=== PATIENT | female | born 1965 | race American Indian/Alaskan Native ===

== ENCOUNTER 2021-03-16 08:00 | Emergency (ER) | payer OTHER ==
--- NOTE | 2021-03-16 08:53 | Emergency Department Report ---
ED General Adult HPI - General Chief complaint: Abdominal Pain Stated complaint: KIDNEY PROBLEM PUI?: No Time Seen by Provider: 03/16/21 08:43 Source: patient, RN notes reviewed Mode of arrival: Ambulatory Limitations: No Limitations - History of Present Illness Initial comments: The patient was evaluated in the emergency department for symptoms described in the history of present illness. He/she was evaluated in the context of the global COVID-19 pandemic, which necessitated consideration that the patient might be at risk for infection with the virus that causes COVID-19. Institutional protocols and algorithms that pertain to the evaluation of patients at risk for COVID-19 are in a state of rapid change based on infor mation released by regulatory bodies including the CDC and federal and state organizations. These policies and algorithms were followed during the patient's care in the emergency department. Please note that these policies, procedures and recommendations changed on a rapid basis. Cardiology: Dr. 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 Primary CARE doctor: Patient reports that her primary care doctor recently retired or stopped working, and she currently does not have a primary care doctor. The patient is a 56-year-old female. Her past medical history includes hypertension, renal insufficiency, uncertain what baseline GFR and creatinine are, obesity, currently being worked up by her outpatient vat skimmer for possible pheochromocytoma. The patient presents to the ER today with a complaint of abdominal cramping for about 1 week. She describes right upper quadrant cramping that radiates to the back and right flank. She denies headache, neck pain, chest pain, vomiting, diaphoresis, dysuria. She denies travel, surgery, DVT and pulmonary embolism risk factors. She reports that she has chronic lower extremity swelling. She reports that she goes to [facility] for her prescriptions, and reports having had an outpatient renal ultrasound recently, about 2 weeks ago, which she thinks was unremarkable. Her vat skimmer has apparently recommended an outpatient MRI to better assess adrenal glands. The patient states that her pain is not present at this time, and she does not need or want any pain medicine. -: Gradual, days(s), week(s) Location: abdomen Severity scale (0 -10): 3 Quality: aching Consistency: intermittent, now resolved Improves with: none Worsens with: none - Related Data Allergies Allergy/AdvReac Type Severity Reaction Status Date / Time No Known Allergies Allergy Unverified 03/16/21 08:07 ED Review of Systems ROS: Stated complaint: KIDNEY PROBLEM Other details as noted in HPI Constitutional: other (Denies loss of taste and smell). denies: fever, malaise, weakness Eyes: denies: eye discharge Respiratory: denies: shortness of breath, wheezing Cardiovascular: edema (Minimal lower extremity edema). denies: chest pain Gastrointestinal: other (Abdominal cramping). denies: nausea, vomiting, hematochezia Genitourinary: denies: urgency, dysuria Musculoskeletal: back pain. denies: myalgia Neurological: denies: weakness Psychiatric: anxiety ED Past Medical Hx - Past Medical History Previous Medical History?: Yes Hx Hypertension: Yes Additional medical history: thyroid - Surgical History Past Surgical History?: Yes Additional Surgical History: part thyroidectomy, sinus surgery, parathyroid g land ED Physical Exam - General Limitations: No Limitations General appearance: alert, anxious, obese - Head Head exam: Present: atraumatic, normocephalic - Eye Eye exam: Present: normal appearance, EOMI. Absent: nystagmus - ENT ENT exam: Present: normal exam, normal orophraynx, mucous membranes moist, normal external ear exam - Neck Neck exam: Present: normal inspection, full ROM. Absent: tenderness, meningismus - Respiratory Respiratory exam: Present: rales (Very faint rales noted in the bilateral inferior lung sanchez). Absent: respiratory distress, wheezes, rhonchi, stridor - Cardiovascular Cardiovascular Exam: Present: regular rate, normal rhythm, normal heart sounds. Absent: bradycardia, tachycardia, irregular rhythm, systolic murmur, diastolic murmur, rubs, gallop - GI/Abdominal GI/Abdominal exam: Present: soft. Absent: distended, tenderness, guarding, rebound, rigid, pulsatile mass - Extremities Exam Extremities exam: Present: normal inspection, full ROM, pedal edema (1+ edema in the bilateral lower extremities), other (2+ pulses noted in the bilateral upper and lower extremities. There is no palpable cord. negative Homans sign. Muscular compartments are soft. The pelvis is stable.). Absent: calf tenderness - Back Exam Back exam: Present: normal inspection, full ROM. Absent: tenderness, CVA tenderness (R), CVA tenderness (L), paraspinal tenderness, vertebral tenderness - Neurological Exam Neurological exam: Present: alert, oriented X3, normal gait, other (No facial droop. Tongue midline. Extraocular movements intact bilaterally. Facial sensation intact to light touch in V1, V2, V3 distribution bilaterally. 5 and a 5 strength in 4 extremities. Sensation intact to light touch in 4 extremities.). Absent: motor sensory deficit - Psychiatric Psychiatric exam: Present: anxious - Skin Skin exam: Present: warm, dry, intact, normal color. Absent: rash ED Course Vital Signs 03/16/21 08:11 Temperature 98.1 F Pulse Rate 80 Respiratory 20 Rate Blood Pressure 163/93 [Right] O2 Sat by Pulse 98 Oximetry - Reevaluation(s) Reevaluation #1: 03/16/21 09:28 Differential diagnosis, including but not limited to: Encounter for medical screening examination, renal insufficiency, CHF, cardiorenal syndrome, electrolyte derangement, pneumonia, biliary colic, cholecystitis, hepatitis Assessment and plan: 56-year-old female, who is afebrile with reassuring vital signs, with the exception of elevated blood pressure, who is not currently tachycardic, tachypneic or hypoxic, who denies travel, surgery, immobilization, DVT and pulmonary embolism risk factors, low risk by Wells criteria for pul monary embolism, who appears to be of primarily presenting for reassurance, as she is very anxious over her outpatient work-up for renal insufficiency, and possible pheochromocytoma. She has no abdominal tenderness, rebound or guarding, and declines pain medication at this time. Her examination at this time is not suggestive or consistent with an acute abdominal surgical condition. Given the presence of very fine rales at the bilateral lung sanchez, lower extremity edema, we will check x-ray of the chest, right upper quadrant ultrasound, EKG, urinalysis, and appropriate laboratory studies. She reports having had a renal ultrasound within the past 2 weeks which was unremarkable to the best of her recollection. Reassess after initial data points. Reevaluation #2: 03/16/21 09:55 Contacted [facility]. Home medications include HCTZ, 12.5 daily, Synthroid, 225 mcg daily, Toprol, 50 mg twice daily, nifedipine, 60 mg daily, clonidine, 0.1 as needed hypertension, and calcium. The office confirms that patient had an outpatient renal ultrasound, which was unremarkable. She apparently had some sort of 24-hour urine test, which may have suggested pheochromocytoma. An outpatient abdominal MRI has been ordered. Laboratory studies unremarkable as of this time. X-ray, right upper quadrant ultrasound, urinalysis, EKG pending. 03/16/21 11:15 Objective diagnostic work-up unremarkable. Patient resting comfortably in stretcher, and in no acute distress. I had extensive discussion with the patient regarding her laboratory studies and imaging studies. She is going to follow-up with her outpatient vat skimmer. She is also asking for an outpatient referral to an ENT. She would like a second opinion. She reports that an outpatient ENT did a turbinectomy on her a few weeks or months ago, and since then, she has had a difficult and irritating postnasal drip. To the best of her knowledge, she does not have a history of obstructive sleep apnea, but she would like an outpatient second opinion from an ENT perspective. No emergent medical condition appears to be present at this time. Please reference the [employer] clinical policy on asymptomatic hypertension. Abdomen soft on repeat examination. ED Medical Decision Making - Lab Data Result diagrams: 03/16/21 08:58 03/16/21 08:58 Vital Signs 03/16/21 08:11 Temperature 98.1 F Pulse Rate 80 Respiratory 20 Rate Blood Pressure 163/93 [Right] O2 Sat by Pulse 98 Oximetry Lab Results 03/16/21 Range/Units 08:58 WBC 4.5 (4.5-11.0) K/mm3 RBC 4.50 (3.65-5.03) M/mm3 Hgb 12.2 (10.1-14.3) gm/dl Hct 36.3 (30.3-42.9) % MCV 81 (79-97) fl MCH 27 L (28-32) pg MCHC 34 (30-34) % RDW 13.8 (13.2-15.2) % Plt Count 198 (140-440) K/mm3 Lab Results 03/16/21 03/16/21 03/16/21 Range/Units 08:58 08:58 08:59 WBC 4.5 (4.5-11.0) K/mm3 RBC 4.50 (3.65-5.03) M/mm3 Hgb 12.2 (10.1-14.3) gm/dl Hct 36.3 (30.3-42.9) % MCV 81 (79-97) fl MCH 27 L (28-32) pg MCHC 34 (30-34) % RDW 13.8 (13.2-15.2) % Plt Count 198 (140-440) K/mm3 PT (12.2-14.9) Sec. INR (0.87-1.13) Sodium 140 (137-145) mmol/L Potassium 3.6 (3.6-5.0) mmol/L Chloride 103.1 (98-107) mmol/L Carbon Dioxide 27 (22-30) mmol/L Anion Gap 14 mmol/L BUN 9 (7-17) mg/dL Creatinine 0.9 (0.6-1.2) mg/dL Estimated GFR > 60 ml/min BUN/Creatinine Ratio 10 % Glucose 106 H (65-100) mg/dL Calcium 8.3 L (8.4-10.2) mg/dL Magnesium 2.00 (1.7-2.3) mg/dL Total Bilirubin 0.60 (0.1-1.2) mg/dL AST 13 (5-40) units/L ALT 14 (7-56) units/L Alkaline Phosphatase 59 (35-129) units/L Total Creatine Kinase 185 H (30-135) units/L NT-Pro-B Natriuret Pep 280.5 (0-900) pg/mL Total Protein 6.9 (6.3-8.2) g/dL Albumin 4.3 (3.9-5) g/dL Albumin/Globulin Ratio 1.7 % Lipase 41 (13-60) units/L 03/16/21 Range/Units 08:59 WBC (4.5-11.0) K/mm3 RBC (3.65-5.03) M/mm3 Hgb (10.1-14.3) gm/dl Hct (30.3-42.9) % MCV (79-97) fl MCH (28-32) pg MCHC (30-34) % RDW (13.2-15.2) % Plt Count (140-440) K/mm3 PT 14.0 (12.2-14.9) Sec. INR 1.03 (0.87-1.13) Sodium (137-145) mmol/L Potassium (3.6-5.0) mmol/L Chloride (98-107) mmol/L Carbon Dioxide (22-30) mmol/L Anion Gap mmol/L BUN (7-17) mg/dL Creatinine (0.6-1.2) mg/dL Estimated GFR ml/min BUN/Creatinine Ratio % Glucose (65-100) mg/dL Calcium (8.4-10.2) mg/dL Magnesium (1.7-2.3) mg/dL Total Bilirubin (0.1-1.2) mg/dL AST (5-40) units/L ALT (7-56) units/L Alkaline Phosphatase (35-129) units/L Total Creatine Kinase (30-135) units/L NT-Pro-B Natriuret Pep (0-900) pg/mL Total Protein (6.3-8.2) g/dL Albumin (3.9-5) g/dL Albumin/Globulin Ratio % Lipase (13-60) units/L - EKG Data -: EKG Interpreted by Ms EKG shows normal: sinus rhythm Rate: bradycardia - EKG Data When compared to previous EKG there are: previous EKG unavailable 03/16/21 11:14 EKG interpreted at 11: 04 Sinus rhythm, bradycardia, 55 bpm. Left axis deviation, left anterior fascicular block, and left ventricular hypertrophy. QTC 431 ms. There is low voltage in the lateral leads. This is an abnormal EKG. This is not a STEMI. - Radiology Data Radiology results: pending, report reviewed, image reviewed [facility] [address] [place] [address] XRay Report Signed Patient: ANDRIY KELLER MR#: [id number] 5 : 1965 Acct:[id number] Age/Sex: 56 / F ADM Date: 03/16/21 Loc: ED Attending Dr: Ordering Physician: LUIZ BARNES MD Date of Service: 03/16/21 Procedure(s): XR chest routine 2V Accession Number(s): [id number] cc: LUIZ BARNES MD Fluoro Time In Minutes: XR chest routine 2V INDICATION / CLINICAL INFORMATION: rales COMPARISON: None available. FINDINGS: SUPPORT DEVICES: None. HEART / MEDIASTINUM: No significant abnormality. LUNGS / PLEURA: Lungs are clear. Costophrenic sulci are sharp. No pneumothorax. ADDITIONAL FINDINGS: No significant additional findings. IMPRESSION: 1. No acute findings. Signer Name: Tate Fuentes MD Signed: 03/16/2021 10:23 AM Workstation Name: [id number] Transcribed By: ANNABELLE Dictated By: Tate Fuentes MD Electronically Authenticated By: Tate Fuentes MD Signed Date/Time: 03/16/21 1023 DD/ 1023 TD/TT: [facility] [address] [place] [address] Ultrasound Report Signed Patient: ANDRIY KELLER MR#: [id number] 5 : 1965 Acct:[id number] Age/Sex: 56 / F ADM Date: 03/16/21 Loc: ED Attending Dr: Ordering Physician: LUIZ BARNES MD Date of Service: 03/16/21 Procedure(s): US abdomen limited Accession Number(s): [id number] cc: LUIZ BARNES MD US abdomen limited INDICATION: ruq pain COMPARISON: None. FINDINGS: Pancreas: No significant abnormality identified in the visualized portions of the pancreas. Abdominal aorta: No significant abnormality. IVC: Normal. Liver: Increased echogenicity. Gallbladder: Sludge in gallbladder. No gallstones, gallbladder wall thickening, or pericholecystic fluid. Bile ducts: The common bile duct measures 3 mm. Right Kidney: No significant abnormality. Additional findings: No significant additional findings. IMPRESSION: Findings most consistent with diffuse hepatic steatosis. Otherwise, no significant sonographic abnormality. Signer Name: Tate Fuentes MD Signed: 03/16/2021 10:20 AM Workstation Name: [id number] Transcribed By: ANNABELLE Dictated By: Tate Fuentes MD Electronically Authenticated By: Tate Fuentes MD Signed Date/Time: 03/16/21 1020 DD/ 1019 Critical care attestation.: If time is entered above; I have spent that time in minutes in the direct care of this critically ill patient, excluding procedure time. ED Disposition Clinical Impression: Elevated blood pressure reading, Right upper quadrant abdominal pain, Hepatic steatosis Disposition: - TO HOME OR SELFCARE Is pt being admited?: No Does the pt Need Aspirin: No Condition: Good Instructions: Abdominal Pain (ED) Additional Instructions: Minimize/avoid consumption of Motrin, ibuprofen, Naprosyn, Aleve, heavy spicy foods. Please continue current outpatient antihypertensive medications. Please follow- up with your outpatient primary care doctor, vat skimmer and department store salesperson as scheduled. Patient may take [id number] Pepcid, Protonix, or Tylenol as needed for physical pain. Please return to the emergency room right away with new pain, worsened pain, migration of pain, projectile vomiting, change in mental status, confusion, inability to tolerate liquid feeds, chest pain, shortness of breath, nausea, vomiting, sweating, any new, worsened or different symptoms not present on the initial emergency room evaluation. For the patient's convenience, we have listed a number of local primary care doctors that she may elect to follow-up with. Patient was not found to have an emergent medical condition while present today in the emergency room. Incidental abnormal findings were noted, which should be routinely followed up by your outpatient provider . Please have primary care physician contact medical records department to obtain copies of laboratory studies and radiology studies, and follow-up on nonemergent incidental abnormal findings. Dr Rosales, Dr Glenn Thompson are local ENT physicians Referrals: [facility] [Provider Group] - 3-5 Days KRISTIN CARTAGENA MD [Staff Physician] - 3-5 Days MARTHA CAMARGO MD [Staff Physician] - 3-5 Days AB WATERS MD [Referring] - 3-5 Days KAUR ROSALES MD [Staff Physician] - 3-5 Days Forms: Work/School Release Form(ED)
[2021-03-16 09:08] LABS: Hematocrit 36.3 % (30.3-42.9); Hemoglobin 12.2 gm/dl (10.1-14.3); Mean Corpuscular HGB Conc 34 % (30-34); Mean Corpuscular Volume 81 fl (79-97); Platelet Count 198 K/mm3 (140-440); Red Cell Distribution Width 13.8 % (13.2-15.2)
[2021-03-16 09:44] LABS: INR 1.03 (0.87-1.13)
[2021-03-16 09:50] LABS: Alanine Aminotransferase 14 units/L (7-56); Albumin 4.3 g/dL (3.9-5); BUN/Creatinine Ratio 10; Blood Urea Nitrogen 9 mg/dL (7-17); Calcium 8.3 mg/dL (8.4-10.2); Hemolysis Index 4
--- NOTE | 2021-03-16 10:25 | Ultrasound Report ---
US abdomen limited INDICATION: ruq pain COMPARISON: None. FINDINGS: Pancreas: No significant abnormality identified in the visualized portions of the pancreas. Abdominal aorta: No significant abnormality. IVC: Normal. Liver: Increased echogenicity. Gallbladder: Sludge in gallbladder. No gallstones, gallbladder wall thickening, or pericholecystic fl uid. Bile ducts: The common bile duct measures 3 mm. Right Kidney: No significant abnormality. Additional findings: No significant additional findings. IMPRESSION: Findings most consistent with diffuse hepatic steatosis. Otherwise, no significant sonographic abnorm ality. Signer Name: Tate Fuentes MD Signed: 03/16/2021 10:20 AM Workstation Name: [id number]
--- NOTE | 2021-03-16 10:27 | XRay Report ---
XR chest routine 2V INDICATION / CLINICAL INFORMATION: rales COMPARISON: None available. FINDINGS: SUPPORT DEVICES: None. HEART / MEDIASTINUM: No significant abnormality. LUNGS / PLEURA: Lungs are clear. Costophrenic sulci are sharp. No pneumothorax. ADDITIONAL FINDINGS: No significant additional findings. IMPRESSION: 1. No acute findings. Signer Name: Tate Fuentes MD Signed: 03/16/2021 10:23 AM Workstation Name: [id number]
[2021-03-16 10:55] LABS: Bacteria,Urine 1+ /HPF (Negative); Bilirubin,Urine NEG (Negative); Blood,Urine NEG (Negative); Color,Urine Yellow (Yellow); Protein,Urine <15 mg/dL mg/dL (Negative); Urobilinogen,Urine < 2.0 mg/dL (<2.0)
[2021-03-16 11:27] VITALS: BP 142/71
--- NOTE | 2021-03-25 10:42 | Electrocardiograph Report ---
[facility] Test Date: 2021-03-16 Test Time: 11:04:37 Pat Name: ANDRIY KELLER Department: Room: Gender: F Medical Parasitologist: SUAD : 1965 Requested By: LUIZ BARNES Order Number: [id number] Reading MD: Jason Mata Measurements Intervals [place] Rate: 55 P: 13 RI: 162 QRS: -16 QRSD: 101 T: -1 QT: 452 QTc: 431 Interpretive Statements Sinus bradycardia Left ventricular hypertrophy No previous ECG available for comparison Electronically Signed On 03-25-2021 10:42:03 EDT by Jason Mata
== END 2021-03-16 11:33 | disposition home or self-care (01) ==
LOC: ED 08:00
DX: K76.0 Fatty (change of) liver, not elsewhere classified (principal); R10.11 Right upper quadrant pain; I10 Essential (primary) hypertension; Z90.89 Acquired absence of other organs; Z98.890 Other specified postprocedural states
CPT/HCPCS: 36415; 71046; 76705; 80053; 81001; 82550; 83690; 83735; 83880; 85027; 85379; 85610; 93005